=== PATIENT | male | born 1965 | race Caucasian/White ===

== ENCOUNTER 2016-06-29 13:58 | Emergency (ER) | payer OTHER ==
[2016-06-29 14:24] VITALS: O2SAT 97
[2016-06-29] MEDS ORDERED: Sodium Chloride 0.9% 1,000 ML IV ONE (15:17)
[2016-06-29] MEDS ORDERED: Sodium Chloride 0.9% 1,000 ML ONE (15:30)
[2016-06-29 15:42] LABS: MEAN CELL VOLUME 85.5 fL (80.0-94.0); MEAN CORPUSCULAR HEMOGLOBIN 28.2 pg (27.0-31.0); MEAN PLATELET VOLUME 9.3 fL (7.2-11.7); NRBC % 0.1 % (0.0-2.0); WHITE BLOOD COUNT 4.1 K/uL (4.8-10.8)
[2016-06-29 15:45] LABS: RBC URINE < 1 /hpf (0-3); URINE BILIRUBIN NEGATIVE (NEGATIVE); URINE BLOOD NEGATIVE (NEGATIVE); URINE COLOR Yellow (YELLOW); URINE GLUCOSE (UA) NORMAL (Normal); URINE KETONE 1+ mg/dL (NEGATIVE); URINE LEUKOCYTE ESTERASE NEG Leu/uL (Negative); URINE PROTEIN NEGATIVE (NEGATIVE); URINE UROBILINOGEN NORMAL mg/dL (0.2-1.0); WBC URINE 1 /hpf (0-5)
[2016-06-29 15:49] LABS: BASO % 0.5 % (0.0-2.0); EOS % 0.6 % (0.0-4.0); HEMATOCRIT 41.3 % (35.0-51.0); LYMPH # 1.9 K/uL (1.0-4.3); LYMPH % 44.9 % (20.0-40.0); MONO # 0.5 K/uL (0.0-0.8); MONO % 11.2 % (0.0-10.0); RED CELL DISTRIBUTION WIDTH 12.8 % (11.5-14.5)
--- NOTE | 2016-06-29 15:54 | RAD ---
PROCEDURE: Radiographs of the chest and abdomen (obstructive series) HISTORY: Unspecified abdominal pain. COMPARISON: No prior. TECHNIQUE: AP radiograph of the chest, with upright and supine radiographs of the abdomen. FINDINGS: CHEST: Lungs: Clear. Cardiovascular: No radiographic findings to suggest acute or significant cardiovascular disease. Pleura: No pleural fluid. No pneumothorax. Other findings: None. ABDOMEN AND PELVIS: Bowel: Unremarkable bowel gas pattern. No evidence of mechanical obstruction. Free air: None. Bones: Unremarkable. Other findings: None. IMPRESSION: Unremarkable radiographs of chest and abdomen. No evidence of mechanical bowel obstruction.
[2016-06-29 16:06] LABS: CHLORIDE 99 mmol/L (98-107)
[2016-06-29 16:08] LABS: POTASSIUM 3.8 mmol/L (3.6-5.2); SODIUM 137 mmol/L (132-148)
[2016-06-29 16:10] LABS: ALB/GLOB RATIO 1.4 (1.0-2.1); ALKALINE PHOSPHATASE 44 U/L (38-126); ALT/SGPT 44 U/L (21-72); AST/SGOT 40 U/L (17-59); BILIRUBIN,TOTAL 0.3 mg/dL (0.2-1.3); BLOOD UREA NITROGEN 10 mg/dL (9-20); CARBON DIOXIDE 25 mmol/L (22-30); GFR AFRICAN-AMERICAN > 60; GLUCOSE,RANDOM 101 mg/dL (75-110); TOTAL PROTEIN 6.8 g/dL (6.3-8.3)
[2016-06-29 16:11] LABS: CALCIUM 8.3 mg/dl (8.6-10.4)
--- NOTE | 2016-06-29 16:14 | C.PDOC ---
History Of Present Illness Patient is a 51 year old male who presents to the ER with a complaint of nausea , vomiting, and diarrhea for the past 4 days. Denies any high risk foods or sick contact. Time Seen by Provider: 06/29/16 15:09 Chief Complaint (Nursing): Abdominal Pain History Per: Patient History/Exam Limitations: no limitations Onset/Duration Of Symptoms: Days (4) Current Symptoms Are (Timing): Still Present Associated Symptoms: Nausea, Vomiting, Diarrhea Past Medical History Reviewed: Historical Data, Nursing Documentation, Vital Signs Vital Signs: Last Vital Signs Temp 98.2 F 06/29/16 16:05 Pulse 77 06/29/16 16:05 Resp 20 06/29/16 16:05 BP 100/62 06/29/16 16:05 Pulse Ox 97 06/30/16 00:42 - Medical History PMH: HTN Surgical History: No Surg Hx Family History: States: No Known Family Hx - Social History Hx Alcohol Use: No Hx Substance Use: No - Immunization History Hx Tetanus Toxoid Vaccination: No Hx Influenza Vaccination: No Hx Pneumococcal Vaccination: No Review Of Systems Except As Marked, All Systems Reviewed And Found Negative. Gastrointestinal: Positive for: Nausea, Vomiting, Diarrhea Physical Exam - Physical Exam Appears: Well, Non-toxic Skin: Normal Color, Warm, Dry Head: Atraumatic, Normacephalic Oral Mucosa: Moist Chest: Symmetrical, No Tenderness Cardiovascular: Rhythm Regular, No Murmur Respiratory: Normal Breath Sounds, No Rales, No Rhonchi, No Wheezing Gastrointestinal/Abdominal: Soft, No Tenderness Neurological/Psych: Oriented x3, Normal Speech, Normal Cognition ED Course And Treatment - Laboratory Results Result Diagrams: 06/29/16 15:34 06/29/16 15:34 Lab Interpretation: Normal (ua neg) O2 Sat by Pulse Oximetry: 97 (Room air) Pulse Ox Interpretation: Normal - Other Rad abd x 3 X-Ray: Interpreted by Me (formed stool R colon, no obst/FA) Progress Note: Pepcid IVP, IV fluids, toradol IVP, and zofran IVP administered. Reevaluation Time: 16:13 Reassessment Condition: Improved Medical Decision Making Medical Decision Making: gastroenteritis, digested and fecalized food R colon. normal labs and belly. Disposition Doctor Will See Patient In The: Office Counseled Patient/Family Regarding: Studies Performed, Diagnosis - Disposition Referrals: Yeison Bob MD [Staff Provider] - Disposition: HOME/ ROUTINE Disposition Time: 16:14 Condition: GOOD Additional Instructions: drink plenty of fluids BRAT diet: bananas, white rice, applesauce/apples, toast/bread Pepcid 20 mg @ night to decrease stomach irritation Imodium 1-2x/day as needed for water stools. Prescriptions: Famotidine [Pepcid] 20 mg PO HS #20 tab Ondansetron ODT [Zofran ODT] 4 mg PO Q8H PRN #6 odt PRN Reason: Nausea/Vomiting Print Language: KOREAN - Clinical Impression Clinical Impression: Gastroenteritis - Scribe Statement The provider has reviewed the documentation as recorded by the Scribjoshua Whittington All medical record entries made by the Scribe were at my direction and personally dictated by me. I have reviewed the chart and agree that the record accurately reflects my personal performance of the history, physical exam, medical decision making, and the department course for this patient. I have also personally directed, reviewed, and agree with the discharge instructions and disposition.
[2016-06-29 16:23] VITALS: BP 100/62; PULSE 77; RESP 20; TEMP 98.2
== END 2016-06-29 16:23 | disposition home or self-care (01) ==
LOC: C.ER 13:58
DX: K52.9 Noninfective gastroenteritis and colitis, unspecified (principal)
CPT/HCPCS: 74022; 80053; 80324; 80345; 80346; 80349; 80353; 80358; 80361; 81001; 83690; 83992; 85025; 96361; 96374; 96375; 99285; J1885; J2405; J7040

== ENCOUNTER 2017-02-01 09:57 | Emergency (ER) | payer OTHER ==
--- NOTE | 2017-02-01 11:00 | C.PDOC ---
History Of Present Illness 51 year old male presents to the ED for evaluation of persistent right lower back and left calf pain which has been intermittent for 2 weeks. Patient states his symptoms began after he felt a pulling and twisting sensation as he was stepping backwards while carrying a heavy object. Patient states pain is localized with respect to left leg and notes pain worsens with left foot flexion. Back pain worsens with movement. Patient denies direct trauma, urinary/ bowel incontinence, extremity numbness/weakness. Time Seen by Provider: 02/01/17 10:42 Chief Complaint (Nursing): Lower Extremity Problem/Injury History Per: Patient History/Exam Limitations: no limitations Onset/Duration Of Symptoms: Intermittent Episodes (2 weeks ) Current Symptoms Are (Timing): Still Present Additional History Per: Patient Past Medical History Reviewed: Historical Data, Nursing Documentation, Vital Signs Vital Signs: Last Vital Signs Temp 97.6 F 02/01/17 11:19 Pulse 84 02/01/17 11:19 Resp 18 02/01/17 11:19 BP 118/76 02/01/17 11:19 Pulse Ox 100 02/01/17 23:56 - Medical History PMH: HTN Surgical History: No Surg Hx Family History: States: Unknown Family Hx - Social History Hx Alcohol Use: No Hx Substance Use: No - Immunization History Hx Tetanus Toxoid Vaccination: No Hx Influenza Vaccination: No Hx Pneumococcal Vaccination: No Review Of Systems Musculoskeletal: Positive for: Back Pain, Leg Pain (left) Neurological: Negative for: Weakness, Numbness Physical Exam - Physical Exam Appears: Non-toxic, No Acute Distress Skin: Normal Color, Warm, Dry, Ecchymosis (left ankle ) Eye(s): bilateral: Normal Inspection Oral Mucosa: Moist Neck: Supple Back: No Decreased ROM, Other (right lower back spasms with localized tenderness. reproducible pain) Extremity: Normal ROM, No Tenderness (left lower leg ), Capillary Refill (less than 2 seconds ), No Deformity, No Swelling, Other (no tenderness or mass to left lower leg. no swelling or tenderness to ankle. no swelling or asymmetry to b/l lower extremities ) Neurological/Psych: Oriented x3, Normal Speech, Normal Cognition Gait: Steady ED Course And Treatment O2 Sat by Pulse Oximetry: 100 Disposition Counseled Patient/Family Regarding: Diagnosis, Need For Followup, Rx Given - Disposition Referrals: YOUR,PMD [Other] Disposition: HOME/ ROUTINE Disposition Time: 11:02 Condition: IMPROVED Additional Instructions: USE WALKING BOOT PRESCRIBED. FOLLOW UP WITH PMD Prescriptions: Acetaminophen [Tylenol Extra Strength] 2 tab PO Q6 #30 tablet Cyclobenzaprine [Flexeril] 10 mg PO TID #15 tab Ibuprofen [Motrin] 600 mg PO Q6 #30 tab Lidocaine 5% [Lidoderm] 1 ea TD PRN PRN #10 patch PRN Reason: Pain, Moderate (4-7) Instructions: Muscle Strain (ED), Back Pain (ED) Forms: [employer] (Tajik) Print Language: THAI - Clinical Impression Clinical Impression: Gastrocnemius strain, Back strain - Scribe Statement The provider has reviewed the documentation as recorded by the Scribe (BABAR) Provider Attestation: All medical record entries made by the Scribe were at my direction and personally dictated by me. I have reviewed the chart and agree that the record accurately reflects my personal performance of the history, physical exam, medical decision making, and the department course for this patient. I have also personally directed, reviewed, and agree with the discharge instructions and disposition.
[2017-02-01] MEDS ORDERED: Lidocaine 5% Patch TD STA (11:05)
[2017-02-01] MEDS ORDERED: Oxycodone/Acetaminophen 5/325 mg Tab PO STA (11:05)
[2017-02-01] MEDS ORDERED: Oxycodone/Acetaminophen 5/325 mg Tab ONE (11:12)
[2017-02-01] MEDS ORDERED: Lidocaine 5% Patch TD ONE (11:12)
[2017-02-01 11:20] VITALS: BP 118/76; PULSE 84; RESP 18; TEMP 97.6
[2017-02-01 23:51] VITALS: O2SAT 100
== END 2017-02-01 11:25 | disposition home or self-care (01) ==
LOC: C.ER 09:57
DX: S39.012A Strain of muscle, fascia and tendon of lower back, initial encounter (principal); X58.XXXA Exposure to other specified factors, initial encounter

== ENCOUNTER 2018-07-04 18:55 | Emergency (ER) | payer OTHER ==
[2018-07-04 19:04] VITALS: TEMP 97.6
[2018-07-04] MEDS ORDERED: Sodium Chloride 0.9% 1,000 ML IV ONE (20:23)
[2018-07-04] MEDS ORDERED: Sodium Chloride 0.9% 1,000 ML ONE (20:36)
[2018-07-04 20:52] LABS: BASO % 0.2 % (0.0-2.0); EOS % 0.4 % (0.0-4.0); HEMOGLOBIN 15.1 g/dL (12.0-18.0); WHITE BLOOD COUNT 5.7 K/uL (4.8-10.8)
[2018-07-04 21:10] LABS: ALB/GLOB RATIO 1.4 (1.0-2.1); ALBUMIN 4.3 g/dL (3.5-5.0); ALT/SGPT 29 U/L (21-72); AST/SGOT 47 U/L (17-59); BLOOD UREA NITROGEN 13 mg/dL (9-20); CALCIUM 9.5 mg/dl (8.6-10.4); GFR NON-AFRICAN AMERICAN > 60; LIPASE 49 U/L (23-300); LYMPH # 2.1 K/uL (1.0-4.3); LYMPH % 36.1 % (20.0-40.0); MEAN CELL VOLUME 86.5 fL (80.0-94.0); MEAN CORPUSCULAR HEMOGLOBIN 29.2 pg (27.0-31.0); MEAN CORPUSCULAR HGB CONC 33.8 g/dL (33.0-37.0); MONO # 0.4 K/uL (0.0-0.8); MONO % 7.7 % (0.0-10.0); NEUT # 3.2 K/uL (1.8-7.0); NEUT % 55.6 % (50.0-75.0); RBC 5.18 Mil/uL (4.40-5.90); RED CELL DISTRIBUTION WIDTH 12.8 % (11.5-14.5)
--- NOTE | 2018-07-04 21:25 | C.PDOC ---
History Of Present Illness Patient is a 53 year old male who presents to the ED c/o dizziness and vomiting that began yesterday morning, but resolved in the afternoon and came back again today. Patient states that she has been unable to eat anything and has not taken any medications for her symptoms. She denies any fever, chills, CP, or SOB. Time Seen by Provider: 07/04/18 20:18 Chief Complaint (Nursing): Dizziness/Lightheaded History Per: Patient History/Exam Limitations: no limitations Onset/Duration Of Symptoms: Days (1) Current Symptoms Are (Timing): Still Present Recent travel outside of the [place]: No Additional History Per: Patient Past Medical History Reviewed: Historical Data, Nursing Documentation, Vital Signs Vital Signs: Last Vital Signs Temp 97.6 F 07/04/18 19:01 Pulse 73 07/04/18 19:01 Resp 18 07/04/18 19:01 BP 127/89 07/04/18 19:01 Pulse Ox 98 07/04/18 19:01 - Medical History PMH: HTN, Hypercholesterolemia Surgical History: No Surg Hx Family History: States: Unknown Family Hx - Social History Hx Alcohol Use: No Hx Substance Use: No - Immunization History Hx Tetanus Toxoid Vaccination: No Hx Influenza Vaccination: Yes Hx Pneumococcal Vaccination: No Review Of Systems Constitutional: Negative for: Fever, Chills Cardiovascular: Negative for: Chest Pain Respiratory: Negative for: Shortness of Breath Gastrointestinal: Positive for: Vomiting Neurological: Positive for: Dizziness Physical Exam - Physical Exam Appears: Non-toxic, No Acute Distress Skin: Normal Color, Warm, Dry Head: Atraumatic, Normacephalic Oral Mucosa: Moist Neck: Normal ROM, Supple Chest: Symmetrical Cardiovascular: Rhythm Regular, No Murmur Respiratory: Normal Breath Sounds, No Rales, No Rhonchi, No Wheezing Gastrointestinal/Abdominal: Soft, No Tenderness Neurological/Psych: Oriented x3 ED Course And Treatment - Laboratory Results Result Diagrams: 07/04/18 20:48 07/04/18 20:48 Lab Results: Troponin I < 0.0120 ng/mL (0.00-0.120) 07/04/18 20:48 Total Bilirubin 0.6 mg/dL (0.2-1.3) 07/04/18 20:48 AST 47 U/L (17-59) 07/04/18 20:48 ALT 29 U/L (21-72) 07/04/18 20:48 Alkaline Phosphatase 45 U/L (38-126) 07/04/18 20:48 Total Protein 7.2 g/dL (6.3-8.3) 07/04/18 20:48 Albumin 4.3 g/dL (3.5-5.0) 07/04/18 20:48 Globulin 3.0 gm/dL (2.2-3.9) 07/04/18 20:48 Albumin/Globulin Ratio 1.4 (1.0-2.1) 07/04/18 20:48 Lipase 49 U/L (23-300) 07/04/18 20:48 Lab Interpretation: Normal (trop neg.) ECG: Interpreted By Me ECG Rhythm: Sinus Rhythm ECG Interpretation: Normal Rate From EC O2 Sat by Pulse Oximetry: 98 (on RA) Pulse Ox Interpretation: Normal - Radiology CXR: Interpreted by Me CXR Interpretation: Yes: No Acute Disease - Other Rad abd x 2 X-Ray: Interpreted by Me (+FOS) Reevaluation Time: 21:33 Reassessment Condition: Improved Medical Decision Making Medical Decision Making: Plan: EKG Labs Obstructive Series Urinalysis Pepcid 20mg IVP Toradol 30mg IVP Antivert 25mg PO Zofran 4mg IVP IV Fluids constipation normal labs, ekg/trop neg. ? viral Disposition Doctor Will See Patient In The: Office Counseled Patient/Family Regarding: Studies Performed, Diagnosis - Disposition Disposition: HOME/ ROUTINE Disposition Time: 21:34 Condition: GOOD Forms: [employer] [employer] (Chilean) - Clinical Impression Clinical Impression: Dizziness, Nausea - Scribe Statement The provider has reviewed the documentation as recorded by the Bakari Marinelli All medical record entries made by the Bakari were at my direction and personally dictated by me. I have reviewed the chart and agree that the record accurately reflects my personal performance of the history, physical exam, medical decision making, and the department course for this patient. I have also personally directed, reviewed, and agree with the discharge instructions and disposition.
[2018-07-04 21:39] LABS: URINE BILIRUBIN NEGATIVE (NEGATIVE); URINE BLOOD NEGATIVE (NEGATIVE); URINE CLARITY Clear (Clear); URINE COLOR Yellow (YELLOW); URINE GLUCOSE (UA) NORMAL (Normal); URINE HYALINE CAST 0-2 /lpf (0-2); URINE LEUKOCYTE ESTERASE NEG Leu/uL (Negative); URINE PROTEIN 2+ mg/dL (NEGATIVE); URINE UROBILINOGEN NORMAL mg/dL (0.2-1.0)
[2018-07-04 22:00] VITALS: BP 111/71; PULSE 66; RESP 20; O2SAT 99
--- NOTE | 2018-07-05 10:29 | RAD ---
Date of service: 07/04/2018 PROCEDURE: Radiographs of the chest and abdomen (obstructive series) HISTORY: abd pain COMPARISON: No prior. TECHNIQUE: AP radiograph of the chest, with upright and supine radiographs of the abdomen. 3 views obtained. FINDINGS: CHEST: Lungs: Clear. Cardiovascular: Normal size heart. No pulmonary vascular congestion. No aortic atherosclerotic calcification present Pleura: No pleural fluid. No pneumothorax. Other findings: None. ABDOMEN AND PELVIS: Bowel: There is moderate amount of stool in the colon. Bowel gas pattern is nonspecific. No evidence of mechanical obstruction. Free air: None. Bones: Unremarkable. Other findings: None. IMPRESSION: Constipation. No evidence of mechanical bowel obstruction. Clear lungs.
--- NOTE | 2018-07-06 03:13 | CARD ---
APPROVED REPORT Date of service: 07/04/2018 EKG Measurement Heart [id number] CO [id number] [id number] <Conclusion> Normal sinus rhythm Possible Left atrial enlargement Borderline ECG
== END 2018-07-04 22:00 | disposition home or self-care (01) ==
LOC: C.ER 18:55
DX: R42 Dizziness and giddiness (principal); R11.0 Nausea; I10 Essential (primary) hypertension; E78.00 Pure hypercholesterolemia, unspecified
CPT/HCPCS: 74022; 80053; 81001; 82948; 83690; 84484; 85025; 96361; 96374; 96375; 99285; J2405; J7030